=== PATIENT | female | born 1970 ===

== ENCOUNTER 2018-06-12 15:39 | Emergency (ER) | payer OTHER ==
[~2018-06-12] VITALS: Ht 157.5 cm; Wt 68.0 kg
[~2018-06-12 15:39] MED LIST: CYCL10 PO; DOXE10; ESTR2 PO; HYDCHL25; HYDCHL25 PO; LEVSOD137 PO; LOVA40; Naprosyn500 MG PO; Norco 10-325 T1 EACH PO; Norco 5-325 Ta1 EACH PO; OXYACE5T PO; OXYC15ER PO; POLY17UD PO; PREG25; PROG100 PO; SIMV40 PO; TAMS.4ER PO
[2018-06-12] MEDS ORDERED: Norco 5-325 Ta1 EACH PO (16:28)
== END 2018-06-12 16:34 | disposition home or self-care (01) ==
LOC: ER 15:39
DX: S82.61XA Displaced fracture of lateral malleolus of right fibula, initial encounter for closed fracture (principal); Z79.899 Other long term (current) drug therapy; Z87.891 Personal history of nicotine dependence; X50.1XXA Overexertion from prolonged static or awkward postures, initial encounter
CPT/HCPCS: 29515; 73610; 99283-25